=== PATIENT | female | born 1945 | race Caucasian/White ===

== ENCOUNTER 2018-07-03 14:43 | Observation (INO) | payer OTHER ==
--- NOTE | 2018-07-03 15:10 | EDPHY ---
H & P Stated Complaint: cp since this AM, radiates to back and left shoulder Time Seen by Provider: 07/03/18 15:10 - Personal History Current Tetanus Diphtheria and Acellular Pertussis (TDAP): Yes - Medical/Surgical History Hx Asthma: No Hx Chronic Respiratory Disease: No Hx Diabetes: No Hx Cardiac Disease: No Hx Renal Disease: No Hx Cirrhosis: No Hx Alcoholism: No Hx HIV/AIDS: No Hx Splenectomy or Spleen Trauma: No Other PMH: HTN, - Social History Smoking Status: Never smoked Constitutional: Initial Vital Signs Temperature (C) 37 C 07/03/18 14:48 Heart Rate 65 07/03/18 14:48 Respiratory Rate 20 07/03/18 14:48 Blood Pressure 225/88 H 07/03/18 14:48 O2 Delivery Mode Nasal Cannula Allergies/Adverse Reactions: Sulfa (Sulfonamide Antibiotics) Allergy (Verified 08/16/16 02:57) Home Medications: Medication Instructions Recorded Aspirin [Aspirin 325 mg (*)] 325 mg PO DAILY PRN 08/16/16 Atenolol [Tenormin 100 mg (*)] 100 mg PO HS 08/16/16 Herbals/Supplements -Info Only 1 ea PO DAILY 08/16/16 Raloxifene HCl [Evista] 60 mg PO HS 08/16/16 Medical Decision Making - Diagnostics Imaging Results: Imaging Impressions Chest X-Ray 07/03/18 15:15 Impression: 1.COPD/airways disease. 2. Potential cardiomegaly. Consider obtaining a routine PA chest to better evaluate the cardiothoracic ratio, if and when the patient is clinically able. Imaging: I viewed and interpreted images myself ED Course/Re-evaluation: CHIEF COMPLAINT: Chest pain HISTORY OF PRESENT ILLNESS: This patient is a 72 year old female with history of hypertension arriving with her family for evaluation of chest pain. Last night, she did not sleep well and was waking frequently. This morning while driving to work around 8am, she noted discomfort in her chest. She describes this as a dull, tight pain in her sternum and her back. It is associated with mild nausea and diaphoresis at her hairline. After several meetings, she went home from work. Her symptoms persisted and began to radiate to a larger area of her chest and back. They have been constant since onset. She endorses family history of CAD in her mother and father around her age. Denies personal history of hyperlipidemia or diabetes. She is a nonsmoker. [place] and has noted increased shortness of breath with exertion for the past two days and attributed this to the change in altitude. No prolonged or international travel. Currently, lying down, her symptoms are slightly relieved. No fever, vomiting, diarrhea, urinary complains, or other associated symptoms. REVIEW OF SYSTEMS: A comprehensive 10 system review of systems is otherwise negative aside from elements mentioned in the history of present illness and medical decision making. PHYSICAL EXAM: HR, BP, O2 Sat, RR. Temp noted General Appearance: Alert, well hydrated, appropriate, and non-toxic appearing. Head: Atraumatic without scalp tenderness or obvious injury Eyes: Pupils equal, round, reactive to light and accommodation, EOMI, no trauma , no injection. Ears: Clear bilaterally, no perforation, normal landmarks Nose: Atraumatic, no rhinorrhea, clear. Throat: There is no erythema or exudates, no lesions, normal tonsils, mucus membranes moist. Neck: Supple, 2+ carotid upstroke, nontender, no lymphadenopathy. Respiratory: No retractions, no distress, no wheezes, and no accessory muscle use. Lungs are clear to auscultation bilaterally. Cardiovascular: Regular rate and rhythm, no murmurs, rubs, or gallops. Bilateral carotid, radial, dorsalis pedis, and posterior tibial pulses intact. Good capillary refill all extremities. Gastrointestinal: Abdomen is soft, nontender, non-distended, no masses, no rebound, no guarding, no peritoneal signs. Musculoskeletal: Normal active ROM of all extremities, atraumatic. Neurological: Alert, appropriate, and interactive. The patient has normal DTRs and non-focal cranial nerves, motor, sensory, and cerebellar exam. Skin: No rashes, good turgor, no nodules on palpation. Past medical history: Hypertension Past surgical history: Noncontributory Family history: Noncontributory Social history: . Family at bedside. PCP Dr. Edwards. Does not abuse tobacco, drugs, or alcohol. DIAGNOSTICS/PROCEDURES/CRITICAL CARE TIME: The 12 lead EKG was interpreted by myself. Sinus rhythm. See hard copy and/or "tracemaster" electronic copy for interpretation. DIFFERENTIAL DIAGNOSIS: The differential diagnosis for the patient's chest pain included but was not limited to myocardial ischemia, pulmonary embolus, chest wall pain, pleural inflammation, and pulmonary infectious causes. MEDICAL DECISION MAKIN72 y/o female presents with seven hour history of constant dull pain and tightness in her chest. Her pain is not reproducible. POC troponin 0.01. Administered 325mg PO ASA, 0.4mg SL nitro and 1" nitro paste for symptom relief. Patient's BP was 225/88 at triage. 15:45 Plan to admit patient. Spoke with Dr. Abarca, hospitalist. He accepts admission to PCU for ACS. Chest x-ray shows evidence of COPD or other underlying airways disease. Mild cardiomegaly. HEART score is 4 based on patient's moderately suspicious history, age, and risk factors including hypertension and family history. Patient's pain has been completely relieved with Nitro. She currently feels well. 16:03 Spoke with ANU Arevalo for cardiology. He will evaluate the patient. Plan to admit as above. - Data Points Laboratory Results: Laboratory Results 07/03/18 15:10 07/03/18 15:10 07/03/18 07/03/18 07/03/18 15:12 15:10 15:10 WBC RBC Hgb Hct MCV MCH MCHC RDW Plt Count MPV Neut % (Auto) Lymph % (Auto) [place] % (Auto) Eos % (Auto) Baso % (Auto) Nucleat RBC Rel Count Absolute Neuts (auto) Absolute Lymphs (auto) Absolute Monos (auto) Absolute Eos (auto) Absolute Basos (auto) Absolute Nucleated RBC Immature Gran % Immature Gran # PT INR APTT D-Dimer 0.32 ug/mLFEU ug/mLFEU (0.00-0.50) Sodium 141 mEq/L mEq/L (135-145) Potassium 4.0 mEq/L mEq/L (3.3-5.0) Chloride 105 mEq/L mEq/L (97-110) Carbon Dioxide 26 mEq/l mEq/l (22-31) Anion Gap 10 mEq/L mEq/L (8-16) BUN 18 mg/dL mg/dL (7-23) Creatinine 0.8 mg/dL mg/dL (0.6-1.0) Estimated GFR > 60 Glucose 86 mg/dL mg/dL (70-100) Calcium 9.3 mg/dL mg/dL (8.5-10.4) Magnesium 2.1 mg/dL mg/dL (1.6-2.3) POC Troponin I 0.01 ng/mL ng/mL (0.00-0.08) NT-Pro-B Natriuret Pep 187 pg/mL H pg/mL (0-125) 07/03/18 07/03/18 15:10 15:10 WBC 7.08 10^3/uL 10^3/uL (3.80-9.50) RBC 4.74 10^6/uL 10^6/uL (4.18-5.33) Hgb 13.6 g/dL g/dL (12.6-16.3) Hct 41.8 % % (38.0-47.0) MCV 88.2 fL fL (81.5-99.8) MCH 28.7 pg pg (27.9-34.1) MCHC 32.5 g/dL g/dL (32.4-36.7) RDW 14.1 % % (11.5-15.2) Plt Count 230 10^3/uL 10^3/uL (150-400) MPV 10.4 fL fL (8.7-11.7) Neut % (Auto) 63.4 % % (39.3-74.2) Lymph % (Auto) 24.6 % % (15.0-45.0) [place] % (Auto) 6.9 % % (4.5-13.0) Eos % (Auto) 4.1 % % (0.6-7.6) Baso % (Auto) 0.7 % % (0.3-1.7) Nucleat RBC Rel Count 0.0 % % (0.0-0.2) Absolute Neuts (auto) 4.49 10^3/uL 10^3/uL (1.70-6.50) Absolute Lymphs (auto) 1.74 10^3/uL 10^3/uL (1.00-3.00) Absolute Monos (auto) 0.49 10^3/uL 10^3/uL (0.30-0.80) Absolute Eos (auto) 0.29 10^3/uL 10^3/uL (0.03-0.40) Absolute Basos (auto) 0.05 10^3/uL 10^3/uL (0.02-0.10) Absolute Nucleated RBC 0.00 10^3/uL 10^3/uL (0-0.01) Immature Gran % 0.3 % % (0.0-1.1) Immature Gran # 0.02 10^3/uL 10^3/uL (0.00-0.10) PT 13.8 SEC SEC (12.0-15.0) INR 1.04 (0.83-1.16) APTT 28.3 SEC SEC (23.0-38.0) D-Dimer Sodium Potassium Chloride Carbon Dioxide Anion Gap BUN Creatinine Estimated GFR Glucose Calcium Magnesium POC Troponin I NT-Pro-B Natriuret Pep Medications Given: Discontinued Medications Aspirin (Aspirin) 324 mg PO EDNOW ONE Stop: 07/03/18 15:40 Last Admin: 07/03/18 16:31 Dose: 324 mg Nitroglycerin (Nitro-Bid 2%) 1 inch TP EDNOW ONE Stop: 07/03/18 15:37 Last Admin: 07/03/18 15:43 Dose: 1 inch Nitroglycerin (Nitrostat) 0.4 mg SL EDNOW ONE Stop: 07/03/18 15:37 Last Admin: 07/03/18 15:38 Dose: 0.4 mg Point of Care Test Results: Chemistry 07/03/18 15:12 POC Troponin I 0.01 ng/mL ng/mL (0.00-0.08) Departure - Departure Disposition: [facility] Inpatient Acute Clinical Impression: Acute coronary syndrome Chest pain Qualifiers: Chest pain type: other chest pain Qualified Code(s): R07.89 - Other chest pain Condition: Fair Report Scribed for: Arturo Wilson Report Scribed by: Herminia Sawyer Date of Report: 07/03/18 Time of Report: 17:10
[2018-07-03 15:33] LABS: PLATELET COUNT 230 10^3/uL (150-400)
[2018-07-03] MEDS ORDERED: NITROGLYCERIN 0.4 MG BTL SL ONE ×2 (15:34→15:36)
[2018-07-03] MEDS ORDERED: NITROGLYCERIN 2% 1 GM PACKET ONE (15:34)
[2018-07-03] MEDS ORDERED: NITROGLYCERIN 2% 1 GM PACKET TP ONE (15:36)
[2018-07-03] MEDS ORDERED: ASPIRIN 81 MG CHEWABLE TAB PO ONE (15:39)
[2018-07-03 15:43] LABS: INR 1.04 (0.83-1.16); PROTIME(PATIENT) 13.8 SEC (12.0-15.0)
--- NOTE | 2018-07-03 18:19 | ECHO ---
[email or web address] [address] [address] Main: [phone] Fax: [email or web address] Echocardiogram Name: MARIANNE SHERWOOD MR#: [id number] Study Date: 07/03/2018 Study Time: 04:21 PM Date of : 1945 Age: 72 year(s) Height: 157.5 cm (62 in.) Weight: 94.8 kg (209 lb.) BSA: 1.95 m2 Gender: Female Examination: Echo Indication: cp Image Quality: Adequate Contrast: Requested by: Avila Balbuena BP: / Heart Rate: Rhythm: Indication: cp Procedure Staff Early Childhood Education Specialist: Chelsea Whaley [facility] Reading Physician: Beau Murray MD Requesting Provider: Conclusions: Normal size left ventricle. Borderline concentric LV hypertrophy. Normal global systolic LV function. EF is 58 %. No regional wall motion abnormality. Grade 1 diastolic dysfunction (abnormal relaxation). Normal size right ventricle. Normal RV function. The left atrium is normal in size. The right atrium is normal in size. Mild aortic valve regurgitation is present. Normal size ascending aorta measuring 3.2 cm. No pericardial effusion. Measurements: Chambers Valvular Assessment AV/MV Valvular Assessment TV/PV Normal Normal Normal Name Value Range Name Value Range Name Value Range Ao Nathalia (MM): 3.1 cm (2.2 cm-3.7 AV Vmax: 1.64 m/s (1 m/s-1.7 PV Vmax: 0.74 m/s (0.6 m/s-0.9 cm) m/s) m/s) IVSd (2D): 0.9 cm (0.6 cm-1.1 AV maxP mmHg ( - ) PV PGmax: 2 mmHg ( - ) cm) LVOT Vmax: 1.08 m/s (0.7 m/s-1.1 LVDd (2D): 4.5 cm (3.9 cm-5.3 m/s) cm) SYLVIA (Vmax): 1.9 cm2 ( - ) LVDs (2D): 2.9 cm (2.1 cm-4 MV E Vmax: 0.52 m/s ( - ) cm) MV A Vmax: 0.84 m/s ( - ) LVPWd (2D): 1.1 cm ( - ) MV E/A: 0.62 ( - ) LVOTd 1.9 cm 1.9 cm mm LVEF (BP): 58 % (>=55 %) Patient: MARIANNE SHERWOOD Study Date: 07/03/2018 Page 1 of 2 04:21 PM RVDd(2D): 2.7 cm (1.9 cm-3.8 cmmm) Continued Measurements: Chambers Valvular Assessment AV/MV Name Value Name Value LADs Lon.9 cm MV DecTime: 359 m/s LA Area: 20.7 cm2 MV E/E' Septal: 9.20 LA Volume: 53 ml MV E/E' Lateral: 8.60 LA Volume Index: 27.2 ml/m2 TAPSE: 2.6 cm RA Area: 13.0 cm2 Additional Vessels Name Value Ao Ascendin.2 cm Findings: Left Ventricle: Normal size left ventricle. Borderline concentric LV hypertrophy. Normal global systolic LV function. EF is 58 %. No regional wall motion abnormality. Grade 1 diastolic dysfunction (abnormal relaxation). Right Ventricle: Normal size right ventricle. Normal RV function. Left Atrium: The left atrium is normal in size. Right Atrium: The right atrium is normal in size. Mitral Valve: The mitral valve is normal in appearance and function. Trivial mitral valve regurgitation. No mitral stenosis is present. Aortic Valve: Aortic valve is not well visualized. Mild aortic valve regurgitation is present. No aortic valve stenosis is present. Tricuspid Valve: The tricuspid valve is normal in appearance and function. There is no significant tricuspid valve regurgitation. Pulmonary artery pressure is not obtained due to inadequate TR jet. Pulmonic Valve: Pulmonary valve not well visualized. Trivial pulmonic valve regurgitation. Aorta: Normal size aortic root measuring 3.1 cm. Normal size ascending aorta measuring 3.2 cm. IVC: The IVC is normal sized. Pericardium: No pericardial effusion. (No Signature Object) Patient: MARIANNE SHERWOOD Study Date: 07/03/2018 Page 2 of 2 04:21 PM [id number]
[2018-07-03] MEDS ORDERED: IOPAMIDOL (ISOVUE 370) 100 ML BTL IV ONE (18:23)
--- NOTE | 2018-07-03 18:43 | CPEKG ---
Test Reason : OPEN Blood Pressure : / mmHG Vent. Rate : 057 BPM Atrial Rate : 057 BPM P-R Int : 174 ms QRS Dur : 093 ms QT Int : 484 ms P-R-T Axes : 069 004 026 degrees QTc Int : 472 ms Sinus rhythm Probable left atrial enlargement Minimal ST depression, diffuse leads Confirmed by Arturo Wilson ([id number]) on 07/03/2018 6:42:29 PM Referred By: Confirmed By:Arturo Wilson
[2018-07-03] MEDS ORDERED: ASPIRIN 325 MG TAB PO PRN (19:53)
[2018-07-03] MEDS ORDERED: ONDANSETRON DISINTEGRATING 4 MG TAB PO PRN (20:07)
[2018-07-03] MEDS ORDERED: ONDANSETRON 4 MG/2 ML VIAL IVP PRN (20:07)
[2018-07-03] MEDS: ATENOLOL 100 MG TAB PO SCH ×3 (20:49→21:07)
[2018-07-03] MEDS: hydrALAZINE 20 MG/ML VIAL IVP PRN ×2 (20:52→23:14)
[2018-07-03] MEDS ORDERED: RALOXIFENE HCL 60 MG TAB PO SCH (21:00)
--- NOTE | 2018-07-03 21:19 | GHP ---
DATE OF ADMISSION: 07/03/2018 The patient is a very pleasant 72-year-old female with history of hypertension who presents with ches t pain. It has been going on for a couple of days. It is central in her chest. It does not radiate to her arm or jaw. It is not associated with shortness of breath. It is not necessarily exertional in nature. She has had. She does have some lower extremity edema. She is not extremely active, although she is about to retire and wishes to begin a walking program when she retires. She has not had fever, chil ls, cough, sputum. The ER described it as associated with nausea and diaphoresis at her hairline. I t caused her to come out from work today. Regarding coronary artery risk factors, she has high blood pressure but does not have hyperlipidemia. She does not smoke. Her parents had heart disease, she did not specify. She has recently traveled to [place] on a cruise. REVIEW OF SYSTEMS: Complete 10-point review of systems conducted and negative except as noted in HPI . PAST MEDICAL HISTORY: Hypertension, pulmonary nodule. MEDICATIONS: Aspirin, atenolol, raloxifene. ALLERGIES: Sulfa. SOCIAL HISTORY: No alcohol. Works in the [employer] for [employer]. FAMILY HISTORY: As in the HPI. PHYSICAL EXAMINATION: VITAL SIGNS: Temp 36.8, blood pressure as high as 208/123, pulse 52, breathin g 14 times a minute, 96% on 2 L. GENERAL: No acute distress. HEENT: Sclerae anicteric. Oropharyn x clear. Mucous membranes moist. NECK: Supple. No lymphadenopathy or JVD. LUNGS: Clear to auscu ltation bilaterally. HEART: S1, S2. ABDOMEN: Soft, nontender, nondistended. LOWER EXTREMITIES: No edema. Calves are nontender. Her lower extremities do have like 1+ edema bilaterally. SKIN: Wi thout rash. NEUROLOGIC EXAM: Nonfocal. LABS: White count 7, hematocrit 42, platelets 230,000. D-dimer 0.32. INR is 1. Chem 7 is normal. Troponin 0.01. Chest x-ray interpreted by me shows no acute cardiopulmonary disease. EKG interpreted by mn shows sinus at 57 with normal axis and intervals. No ST or T-wave changes. CTA of the chest shows no dissection, no pulmonary embolism, fatty liver, a 6.0 x 7.5 mm noncalcified pulmonary nodule in the upper medial right middle lobe, not previously seen. She has another old pu lmonary nodule. Echo shows intact LV function, normal wall motion abnormality, borderline concentric hypertrophy, and grade 1 diastolic dysfunction with no significant valvular lesions. I had discussed the case with Alexsander Wilson. ASSESSMENT/PLAN: A 72-year-old female with chest pain. 1. Chest pain: I think it is probably musculoskeletal in nature as opposed to cardiac, but I think given her risk factor profile and her hypertension, we will put her on a treadmill tomorrow. She has normal EKGs so no imaging is required. Echocardiogram, CTA and D-dimer, rule out dissection, pulmon skinny embolism, acute coronary artery syndrome. We will cycle troponins. 2. Fatty liver. I will check LFTs and A1c. 3. Chest pain, again we will check a lipid panel. 4. Hypertension, markedly so. She has some p.r.n. hydralazine. We will give her atenolol this even ing which she takes at night. 5. Lower extremity edema that is probably attributed to her abdominal obesity. DISPOSITION: Observation status. /[id number]/MODL
--- NOTE | 2018-07-03 21:19 | GCON ---
CARDIOLOGY CONSULTATION DATE OF CONSULTATION: 07/03/2018 REFERRING PHYSICIAN: Albino Abarca MD INDICATION FOR CONSULTATION: Chest pain. HISTORY OF PRESENT ILLNESS: The patient is a pleasant 72-year-old female with a known history of ess ential hypertension, who states she was in her usual state of health until this morning around 7:30. When she got out of bed, she noticed some dull, 4/10 substernal chest pressure that radiated to her back between her shoulder blades. She states she got dressed and went to work. She states that when she got out of her car for work that she began to feel diaphoretic and nauseated. She continued to try to get through her workday, noting that she had several meetings to attend to; however, she was a ble to only attend 2 meetings and felt markedly worse. She continued to have 4/10, dull substernal c hest pressure radiating to back, which also began to radiate to her neck and shoulders. She contacte d her primary care physician's office, who recommended she present to [facility] department for further evaluation. On her arrival this afternoon at 1510, initial blood pressu re was 225/88. In the ER, she received 325 mg of aspirin and a single sublingual nitroglycerin and n itroglycerin paste with improvement in blood pressure and resolution of symptoms. Her [id number] troponin was normal at 0.01. ECG demonstrated normal sinus rhythm with normal intervals and normal a xis. No evidence of ischemic changes. Chest x-ray demonstrated COPD changes and airway disease. Currently, at the time of my exam, she is sitting on the edge of the bed. She is resting comfortably . She does note some mild ongoing chest discomfort but feels that it is markedly better than on admi ssion. Her blood pressure remains elevated and currently 184/104. Heart rate is 51 in sinus rhythm. She does note that she returned on Sunday from a cruise to [place]. She states she flew from [facility] and then was on a cruise trip from [place] to [place] and back. She does note dietary indis cretions during her trip and notes at least a 5-pound weight gain. She does have chronic bilateral l ower extremity edema, right greater than left, which has been present on and off for several years. She describes symptoms consistent with venous insufficiency. PAST MEDICAL HISTORY: Notable only for hypertension. PAST SURGICAL HISTORY: None. FAMILY HISTORY: No known history of aneurysm or aortic dissection. She reports a family history in her parents of coronary disease in their 70s. She has no other family history of heart disease. MEDICATIONS ON ADMISSION: Include atenolol 100 mg daily, Evista 60 mg h.s., and aspirin 325 mg daily . SOCIAL HISTORY: She is a lifelong nonsmoker, rarely drinks alcohol, does not use marijuana, does not exercise regularly, and is . EXAM: VITAL SIGNS: Currently, blood pressure 184/104, heart rate 51 in sinus bradycardia, temperatu re 36.8, oxygen saturation 93% on room air. GENERAL: She is awake, alert, oriented, appropriate, in no apparent distress, obese. There is no evidence of JVP or carotid bruits. LUNGS: Clear to auscu ltation bilaterally. CARDIAC: S1, S2. Regular rate and rhythm. No murmurs, rubs, or gallops. She has 2+ bilateral radial artery pulses. ABDOMEN: Obese, soft, nontender. I cannot appreciate a pul satile mass or abdominal bruits. EXTREMITIES: She does have 1 to 2+ bilateral nonpitting ankle alba a, which appears symmetric. DATA: White blood cell count of 7, hemoglobin of 13.6, hematocrit of 41.8, platelets 230. Sodium 141, potassium 4.0, chloride 105, bicarb 26, BUN 18, creatinine 0.8. INR 1.04. Magnesium 2.1 . Troponin 0.01. N-terminal proBNP 187. ECG demonstrates sinus rhythm at 57 beats per minute with normal intervals and normal axis. No evide nce of ischemic changes. Chest x-ray demonstrates no evidence of heart failure and changes, consistent with COPD or airway dis ease. Echocardiogram is performed. Results are pending. IMPRESSION: 1. Hypertensive urgency. 2. Substernal chest pain, radiating to the back. The patient presents with now approximately 11 hours of constant substernal chest pressure, presentin g with hypertensive urgency. Recent dietary indiscretions on cruise to [place] and back. She has no history of DVT or PE or clotting disorder in her family history. Findings are not consistent with pu lmonary embolus. Given her blood pressure and her pain radiating from her chest to the midscapular r egion, concern for possible aortic dissection. We recommend stat CTA to be performed. I do note ech ocardiogram has been completed. Results are pending. If CTA is negative, we will focus on improving blood pressure control, as well as further ruling out for underlying coronary artery disease. PLAN: 1. Stat CTA of the chest to rule out aortic dissection. 2. We will give a single dose of hydralazine 10 mg IV now. 3. We will follow serial troponins x3. 4. We will plan to repeat ECG in the morning. 5. N.p.o. after midnight. 6. She is currently n.p.o. until CTA results have been obtained. 7. We will continue to follow along with her care. /[id number]/MODL
[2018-07-04] MEDS: ACETAMINOPHEN 325 MG TAB PO PRN ×2 (00:56→10:22)
[2018-07-04] MEDS ORDERED: LOSARTAN/HCTZ 50/12.5 1 TAB PO SCH (09:45)
[2018-07-04] MEDS ORDERED: PANTOPRAZOLE SODIUM 40 MG TAB PO SCH (09:45)
--- NOTE | 2018-07-04 09:56 | PDCARPN ---
Cardiology Progress Note Chief Complaint: Chest pain. Elevated BP Assessment/Plan: Assessment: 1. Hypertensive urgency 2. chest pain 3. Bradycardia Plan: -DC Atenolol -Start Coreg 6.25 mg bid -Start Losartan/HCTZ 50/12.5 mg once daily -IF BP remains stable and pt remains pain free, OK to discharge later today with out patient stress test and follow up with me. 07/04/18 09:54 Subjective: Elissa is feeling better this morning. SBP is improved in the 140's this AM. She did require Hydralazine over night. Trop neg x 2. CTA neg for aortic dissection or PE. No events on telemtery. No complaints of chest pain, sob, cuevas, nausea, diaphoresis. No mid scapular pain. Reviewed/Discussed With: family Objective: Vital Signs (8 Hrs) Temp Pulse Resp BP Pulse Ox 07/04/18 07:17 36.6 C 67 16 145/83 H 93 07/04/18 04:00 36.4 C 67 18 143/74 H 92 Intake/Output (24 Hrs) 07/03/18 07/04/18 07/05/18 05:59 05:59 05:59 Intake Total 450 Balance 450 Intake: Oral (ml) 450 Other: Weight 95.9 kg Number of Voids Toilet 2 Result Diagrams: 07/03/18 15:10 07/04/18 03:34 Cardiac Labs: Cardiac Lab Results (72 Hrs) 07/04/18 07/03/18 03:34 21:12 Troponin I < 0.012 < 0.012 ICD10 Worksheet Patient Problems: Problems Problem Status Onset Acute coronary syndrome Acute Chest pain Acute SBO (small bowel obstruction) Acute
--- NOTE | 2018-07-04 11:54 | ASMTCASEMG ---
Living Arrangements What is your living Answers: With Spouse arrangement? Who do you live with? Type Of Residence What kind of residence do Answers: House you live in? Discharge Plan Comments Coordination Status Comments Notes: Pt is a 72 y/o female admitted for acute coronary syndrome. Dr. Murray consulted on pt today. Pt will have an outpatient stress test. If pts blood pressure continues to go down pt will d/c without any needs. No therapies ordered at this time. CM available for changes. Plan: Independent Date Signed: 07/04/2018 11:53 AM Electronically Signed By:LORRAINE Cooper
[2018-07-04 16:00] VITALS: BP 181/95
[2018-07-04] MEDS ORDERED: CARVEDILOL 6.25 MG TAB PO SCH (18:00)
== END 2018-07-04 16:15 | disposition home or self-care (01) ==
LOC: OBSVTOIN 15:44 → INTOOBSV 15:44 → F2W 16:50
PROVIDERS: ADMIT Internal Medicine; ATTEND Internal Medicine
DX: I16.0 Hypertensive urgency (principal); R07.9 Chest pain, unspecified; R00.1 Bradycardia, unspecified; J44.9 Chronic obstructive pulmonary disease, unspecified; R91.1 Solitary pulmonary nodule; K76.0 Fatty (change of) liver, not elsewhere classified; R22.43 Localized swelling, mass and lump, lower limb, bilateral; K44.9 Diaphragmatic hernia without obstruction or gangrene; Z82.49 Family history of ischemic heart disease and other diseases of the circulatory system
CPT/HCPCS: 71046; 71275; 93005; 93306; 96374; 96375; 99285; G0378; 84484-PO; J0360; J2405; Q9967

== ENCOUNTER → 2019-01-13 | Outpatient (CLI) | payer OTHER | LOC: FIMAGING 09:16 | PROVIDERS: ATTEND Physician Assistant Medical | DX: R91.1 Solitary pulmonary nodule (principal); K44.9 Diaphragmatic hernia without obstruction or gangrene; N28.89 Other specified disorders of kidney and ureter ==